=== PATIENT | female | born 1995 | race Hispanic/Latino ===

== ENCOUNTER 2022-01-15 16:30 | Emergency (ER) | payer OTHER ==
[~2022-01-15] VITALS: Ht 157.5 cm; Wt 81.6 kg
[2022-01-15] MEDS ORDERED: BACI30OI6 TP (17:10)
[2022-01-15] MEDS ORDERED: CLIN-141 PO (17:10)
[2022-01-15 17:21] VITALS: BP 126/86
[2022-01-15] MEDS ORDERED: CLINDAMYCIN 150 MG CAP PO ONE (17:30)
== END 2022-01-15 17:26 | disposition home or self-care (01) ==
LOC: EDH 16:30
DX: N76.4 Abscess of vulva (principal)
CPT/HCPCS: 56405